=== PATIENT | male | born 1980 | race Caucasian/White ===

== ENCOUNTER 2017-06-29 17:30 | Emergency (ER) | payer BC ==
[2017-06-29] MEDS ORDERED: Lidocaine 1% 20 ML MDV ONE (17:51)
[2017-06-29] MEDS ORDERED: Diphtheria,Pertussis(Acell),Tetanus Vaccine 0.5 ML SDV IM ONE (18:17)
[2017-06-29] MEDS ORDERED: Lidocaine 1% 10 ML MDV INJECT ONE (18:21)
--- NOTE | 2017-06-29 18:25 | EDM.PDOC ---
ED HPI GENERAL MEDICAL PROBLEM - General Chief Complaint: Trauma Stated Complaint: TRAUMA Time Seen by Provider: 06/29/17 18:16 Source of Information: Reports: Patient History Limitations: Reports: No Limitations - History of Present Illness INITIAL COMMENTS - FREE TEXT/NARRATIVE: Patient is a 36-year-old gentleman who presents to the emergency department this evening with a complaint of facial trauma. 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 Patient sustained upper and lower lip lacerations and dental injury. Patient denies difficulty breathing, neck pain, loss of consciousness, headache, blurry vision, chest pain, shortness of breath , or any other injury. Injury was witnessed and actually described the same by another worker. 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 Constitutional: Reports: No Symptoms Eyes: Reports: No Symptoms Ears: Reports: No Symptoms Nose: Reports: No Symptoms Mouth/Throat: Reports: Lip Swelling, Loose Teeth. Denies: Tongue Swelling, Throat Swelling, Difficulty Swallowing Respiratory: Reports: No Symptoms Cardiovascular: Reports: No Symptoms GI/Abdominal: Reports: No Symptoms Genitourinary: Reports: No Symptoms Musculoskeletal: Reports: No Symptoms Skin: Reports: No Symptoms Neurological: Reports: No Symptoms Psychiatric: Reports: No Symptoms ED EXAM, GENERAL - Physical Exam Exam: See Below Exam Limited By: No Limitations General Appearance: Alert, WD/WN, No Apparent Distress Eye Exam: Bilateral Eye: Normal Inspection Ears: Normal External Exam, Normal Canal Nose: Normal Inspection, Normal Mucosa, No Blood Throat/Mouth: Normal Inspection, Normal Oropharynx, No Airway Compromise, Other (Lower lip right first third aspect with a 2 cm linear laceration. Upper lip right two third with a 2 cm linear laceration. Right upper incisor stable, but gums surrounding tooth have tissue avulsion.). No: Normal Lips, Normal Teeth, Normal Gums Neck: Normal Inspection, Supple, Non-Tender Respiratory/Chest: No Respiratory Distress, Lungs Clear Cardiovascular: Regular Rate, Rhythm GI/Abdominal: Normal Bowel Sounds, Soft Back Exam: Normal Inspection Extremities: Normal Inspection, Normal Range of Motion, Non-Tender Neurological: Alert, Oriented, CN II-XII Intact, Normal Cognition Psychiatric: Normal Affect, Normal Mood Skin Exam: Warm, Dry, Intact, Normal Color, No Rash ED TRAUMA PROCEDURES - Laceration/Wound Repair Mouth Lac/Wound Length In cm: 4 Appearance: Superficial Distal NVT: Neuro & Vascular Intact Anesthetic Type: Local Local Anesthesia - Lidocaine (Xylocaine): 2% Plain Local Anesthetic Volume: 3cc Skin Prep: Providone-Iodine (Betadine) Closed With: Sutures Suture Size: other (5.0) Suture Type: Nylon, Interrupted Suture Size: other (5.0) Repaired With: Vicryl Tetanus Status Addressed: Yes Complications: No Complication Description: Vermilion border inferior aspect of lower lip approximated. Progress/Comments: Tolerated procedure well. Dental intact. Course - Vital Signs Last Recorded V/S: Last Vital Signs Temp 97.7 F 06/29/17 17:38 Pulse 102 H 06/29/17 17:38 Resp 16 06/29/17 17:38 BP 180/101 H 06/29/17 17:38 Pulse Ox 99 06/29/17 17:38 - Orders/Labs/Meds Orders: Active Orders 24 hr Category Date Time Status Vaccines to be Administered [RC] PER UNIT ROUTINE Care 06/29/17 18:17 Ordered Max Facial Sinus wo Cont [CT] Stat Exams 06/29/17 18:17 Ordered Meds: Medications Discontinued Medications Generic Name Dose Route Start Last Admin Trade Name Freq PRN Reason Stop Dose Admin Diphtheria/Tetanus/Acell Pertussis 0.5 ml 06/29/17 18:17 Adacel IM 06/29/17 18:18 .ONCE ONE Lidocaine HCl Confirm 06/29/17 17:51 Xylocaine 1% Administered 06/29/17 17:52 Dose 20 ml .ROUTE .STK-MED ONE - Re-Assessments/Exams Free Text/Narrative Re-Assessment/Exam: 06/29/17 18:28 Patient afebrile, nontoxic appearing, vital signs stable, family at bedside, patient tolerated procedure well. Patient will follow-up with dentist in 1-2 days. Patient will also follow-up in 10 days with PCP or return to emergency department for suture removal. Departure - Departure Time of Disposition: 18:58 Disposition: Home, Self-Care 01 Condition: Good Clinical Impression: Laceration of vermilion border of lower lip Qualifiers: Encounter type: initial encounter Qualified Code(s): S01.511A - Laceration without foreign body of lip, initial encounter Lip laceration Qualifiers: Encounter type: initial encounter Qualified Code(s): S01.511A - Laceration without foreign body of lip, initial encounter Dental trauma Qualifiers: Encounter type: initial encounter Qualified Code(s): S09.93XA - Unspecified injury of face, initial encounter - Discharge Information Instructions: Laceration Care, Adult, [id number], Tooth Injuries, Easy-to- Read, Mouth Laceration, [id number] Additional Instructions: Follow-up with primary care provider or return to emergency department in 10 days for suture removal. Follow-up with dentist next available appointment. - My Orders Last 24 Hours: My Active Orders 06/29/17 18:17 Vaccines to be Administered [RC] PER UNIT ROUTINE Max Facial Sinus wo Cont [CT] Stat - Assessment/Plan Last 24 Hours: My Active Orders 06/29/17 18:17 Vaccines to be Administered [RC] PER UNIT ROUTINE Max Facial Sinus wo Cont [CT] Stat Assessment:: Upper and lower lip lacerations, dental trauma Plan: Follow-up with dentist in 1-2 days. Return to emergency department in 10 days for suture removal.
== END 2017-06-29 19:00 | disposition home or self-care (01) ==
LOC: KA.ED 17:30
DX: S01.511A Laceration without foreign body of lip, initial encounter (principal); Z23 Encounter for immunization; Z79.899 Other long term (current) drug therapy
CPT/HCPCS: 40650; 70486; 90471; 90715; 99284; A9270-GY